=== PATIENT | female | born 1995 | race American Indian/Alaskan Native ===

== ENCOUNTER 2016-12-07 13:08 | Emergency (ER) | payer OTHER ==
[2016-12-07 14:10] LABS: Basophils % (Auto) 0.8 % (0.0-1.8); Eosinophils % (Auto) 0.6 % (0.0-4.3); Hematocrit 36.3 % (30.3-42.9); Hemoglobin 11.4 gm/dl (10.1-14.3); Mean Corpuscular HGB Conc 31 % (30-34); Platelet Count 217 K/mm3 (140-440); Red Cell Distribution Width 15.1 % (13.2-15.2); White Blood Count 4.7 K/mm3 (4.5-11.0)
[2016-12-07 14:11] LABS: Mean Corpuscular Hemoglobin 22 pg (28-32); Mean Corpuscular Volume 70 fl (79-97)
[2016-12-07 14:29] LABS: Anion Gap 21 mmol/L; Blood Urea Nitrogen 10 mg/dL (7-17); Calcium 9.5 mg/dL (8.4-10.2); Carbon Dioxide 23 mmol/L (22-30); Chloride 102.3 mmol/L (98-107); Glucose 75 mg/dL (65-100); Potassium 3.8 mmol/L (3.6-5.0); Sodium 142 mmol/L (137-145)
[2016-12-07] MEDS ORDERED: PROVENTIL IH ONE ×2 (16:15→20:42)
[2016-12-07] MEDS ORDERED: DELTASONE PO ONE (20:41)
--- NOTE | 2016-12-07 21:27 | Emergency Department Report ---
ED Asthma HPI - General Chief Complaint: Adult Asthma Stated Complaint: KATERINA Time Seen by Provider: 12/07/16 20:41 Source: patient Mode of arrival: Ambulatory Limitations: No Limitations - History of Present Illness Initial Comments: Patient is a 21-year-old female has a past medical history of asthma who presents with shortness of breath that has been going on earlier today. Patient states that her symptoms are worse with exertion and better at rest. She states that her symptoms are mild. 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 Patient states that her shortness of breath is better that she still needs an albuterol inhaler. Patient states that her triggers are weather change; her symptoms were sudden in onset - Related Data Previous Rx's Medication Instructions Recorded Last Taken Type ALBUTEROL Inhaler [ProAir HFA 2 puff IH QID PRN #1 inhalation 12/07/16 Unknown Rx Inhaler] predniSONE [Deltasone] 20 mg PO BID #10 tablet 12/07/16 Unknown Rx Allergies Allergy/AdvReac Type Severity Reaction Status Date / Time cinnamon Allergy Unknown Verified 12/07/16 13:39 ED Review of Systems ROS: Stated complaint: KATERINA Other details as noted in HPI Constitutional: denies: chills, fever Eyes: denies: eye pain, eye discharge, vision change ENT: denies: ear pain, throat pain Respiratory: shortness of breath, SOB with exertion. denies: cough, wheezing Cardiovascular: denies: chest pain, palpitations Endocrine: no symptoms reported Gastrointestinal: denies: abdominal pain, nausea, diarrhea Genitourinary: denies: urgency, dysuria, discharge Musculoskeletal: denies: back pain, joint swelling, arthralgia Skin: denies: rash, lesions Neurological: denies: headache, weakness, paresthesias Psychiatric: denies: anxiety, depression Hematological/Lymphatic: denies: easy bleeding, easy bruising ED Past Medical Hx - Past Medical History Previous Medical History?: Yes Hx Asthma: Yes - Surgical History Past Surgical History?: No - Social History Smoking Status: Never Smoker Substance Use Type: None - Medications Home Medications: Home Medications Medication Instructions Recorded Confirmed Last Taken Type ALBUTEROL Inhaler [ProAir HFA 2 puff IH QID PRN #1 inhalation 12/07/16 Unknown Rx Inhaler] predniSONE [Deltasone] 20 mg PO BID #10 tablet 12/07/16 Unknown Rx ED Physical Exam - General Limitations: No Limitations General appearance: alert, in no apparent distress - Head Head exam: Present: atraumatic, normocephalic - Eye Eye exam: Present: normal appearance - ENT ENT exam: Present: mucous membranes moist - Neck Neck exam: Present: normal inspection - Respiratory Respiratory exam: Present: normal lung sounds bilaterally. Absent: respiratory distress - Cardiovascular Cardiovascular Exam: Present: regular rate, normal rhythm. Absent: systolic murmur, diastolic murmur, rubs, gallop - GI/Abdominal GI/Abdominal exam: Present: soft, normal bowel sounds - Extremities Exam Extremities exam: Present: normal inspection - Back Exam Back exam: Present: normal inspection - Neurological Exam Neurological exam: Present: alert, oriented X3 - Psychiatric Psychiatric exam: Present: normal affect, normal mood - Skin Skin exam: Present: warm, dry, intact, normal color. Absent: rash ED Course Vital Signs 12/07/16 12/07/16 12/07/16 13:39 16:15 16:18 Temperature 98.4 F Pulse Rate 109 H 84 Pulse Rate [ 86 Bilateral] Respiratory 22 22 Rate Respiratory 16 Rate [Bilateral ] Blood Pressure 149/100 Blood Pressure 140/81 [Right] O2 Sat by Pulse 100 99 Oximetry 12/07/16 12/07/16 12/07/16 16:39 19:45 20:09 Temperature Pulse Rate Pulse Rate [ 88 Bilateral] Respiratory 16 Rate Respiratory 16 Rate [Bilateral ] Blood Pressure 122/71 Blood Pressure [Right] O2 Sat by Pulse 99 Oximetry 12/07/16 12/07/16 21:07 21:13 Temperature Pulse Rate Pulse Rate [ 92 H 95 H Bilateral] Respiratory Rate Respiratory 18 18 Rate [Bilateral ] Blood Pressure Blood Pressure [Right] O2 Sat by Pulse Oximetry - Reevaluation(s) Reevaluation #1: 12/07/16 21:27 Patient breathing treatment and she states she is feeling better I will send patient home with albuterol inhaler and steroid taper. ED Medical Decision Making - Lab Data Result diagrams: 12/07/16 13:47 12/07/16 13:47 Lab Results 12/07/16 12/07/16 12/07/16 Range/Units 13:47 13:47 13:47 WBC 4.7 (4.5-11.0) K/mm3 RBC 5.20 H (3.65-5.03) M/mm3 Hgb 11.4 (10.1-14.3) gm/dl Hct 36.3 (30.3-42.9) % MCV 70 L (79-97) fl MCH 22 L (28-32) pg MCHC 31 (30-34) % RDW 15.1 (13.2-15.2) % Plt Count 217 (140-440) K/mm3 Lymph % (Auto) 32.8 (13.4-35.0) % Kay % (Auto) 10.2 H (0.0-7.3) % Eos % (Auto) 0.6 (0.0-4.3) % Baso % (Auto) 0.8 (0.0-1.8) % Lymph # 1.6 (1.2-5.4) K/mm3 Kay # 0.5 (0.0-0.8) K/mm3 Eos # 0.0 (0.0-0.4) K/mm3 Baso # 0.0 (0.0-0.1) K/mm3 Seg Neutrophils % 55.6 (40.0-70.0) % Seg Neutrophils # 2.6 (1.8-7.7) K/mm3 Sodium 142 (137-145) mmol/L Potassium 3.8 (3.6-5.0) mmol/L Chloride 102.3 (98-107) mmol/L Carbon Dioxide 23 (22-30) mmol/L Anion Gap 21 mmol/L BUN 10 (7-17) mg/dL Creatinine 0.5 L (0.7-1.2) mg/dL Estimated GFR > 60 ml/min BUN/Creatinine Ratio 20.00 % Glucose 75 (65-100) mg/dL Calcium 9.5 (8.4-10.2) mg/dL Troponin T < 0.010 (0.00-0.029) ng/mL HCG, Qual Negative (Negative) - EKG Data -: EKG Interpreted by Ks - EKG Data 12/07/16 21:28 Patient's EKG shows normal sinus rhythm septal infarct age indeterminate no axis deviation no ST segment elevation or T-wave inversion. - Medical Decision Making Chief medical diagnosis: Asthma exacerbation Differential medical diagnosis: Hypokalemia, , hyponatremia I will give the patient a breathing treatment I will also order a CBC, CMP and urine Patient is able to ambulate without any shortness of breath she has no wheezing on exam and laboratory findings are unrevealing. I'll send the patient home and she'll verbal discharge instructions were given. Critical care attestation.: If time is entered above; I have spent that time in minutes in the direct care of this critically ill patient, excluding procedure time. ED Disposition Clinical Impression: Asthma exacerbation Disposition: DC-01 TO HOME OR SELFCARE Is pt being admited?: No Does the pt Need Aspirin: No Condition: Stable Instructions: Asthma (ED) Prescriptions: ALBUTEROL Inhaler [ProAir HFA Inhaler] 2 puff IH QID PRN #1 inhalation PRN Reason: Shortness Of Breath predniSONE [Deltasone] 20 mg PO BID #10 tablet Referrals: PRIMARY CARE, [Primary Care Provider] - 3-5 Days Forms: Work/School Release Form(ED) Time of Disposition: 21:32
[2016-12-07 22:04] VITALS: BP 133/90
== END 2016-12-07 22:03 | disposition home or self-care (01) ==
LOC: ED 13:08
DX: J45.901 Unspecified asthma with (acute) exacerbation (principal); Z91.018 Allergy to other foods
CPT/HCPCS: 36415; 80048; 84484; 84703; 85025; 93005; 93010; 94640; 99284; J7512

== ENCOUNTER 2021-11-09 12:38 | Outpatient (CLI) | payer MEDICAID ==
[2021-11-09 15:04] VITALS: BP 118/57
--- NOTE | 2021-11-10 06:30 | Ultrasound Report ---
US OB BPP wo non-stress, US OB limited INDICATION / CLINICAL INFORMATION: wellbeing COMPARISON: None available. TECHNIQUE: Using a transcutaneous probe, multiple grayscale, color Doppler, and spectral Doppler imag es of the uterus and fetus were captured and stored. Additional biophysical profile was performed. FINDINGS: Clinical estimated gestational age is 37 weeks 1 day. Single cephalic fetus is present heart rate 135 bpm. Amniotic fluid index is within normal limits measuring 14 cm. BREATHING MOVEMENT = 2 GROSS BODY MOVEMENT = 2 TONE = 2 QUALITATIVE AMNIOTIC FLUID VOLUME = 2 TOTAL BIOPHYSICAL SCORE = 8/8 IMPRESSION: 1. Normal biophysical profile score 8/8. 2. Single living fetus with normal CHRISTOPHER. Signer Name: Freddy Harp II, MD Signed: 11/10/2021 6:26 AM Workstation Name: [id number]
== END 2021-11-09 16:44 | disposition home or self-care (01) ==
LOC: TRG 12:38 → APU 12:40 → TRG 16:44
PROVIDERS: ATTEND Obstetrics & Gynecology
DX: Z34.93 Encounter for supervision of normal pregnancy, unspecified, third trimester (principal); Z3A.37 37 weeks gestation of pregnancy
CPT/HCPCS: 76815; 76819

== ENCOUNTER 2021-11-29 12:58 | Outpatient (CLI) | payer MEDICAID ==
--- NOTE | 2021-11-29 16:11 | Ultrasound Report ---
Biophysical profile Ultrasound HISTORY: well being. TECHNIQUE: Grayscale and color imaging performed. COMPARISON: None FINDINGS: Fetus received a score of 2 out of 2 for breathing, movement, posture/tone, and CHRISTPOHER. Total score was 8 out of 8. Heart rate was 131 bpm. IMPRESSION: Normal BPP Signer Name: Wolfgang Zapata MD Signed: 11/29/2021 4:06 PM Workstation Name: [id number]
[2021-11-29 16:35] VITALS: BP 107/75
--- NOTE | 2021-11-29 17:30 | Ultrasound Report ---
ULTRASOUND OBSTETRIC LIMITED INDICATION / CLINICAL INFORMATION: , evaluate amniotic fluid index. Clinical Gestational Age (GA) in weeks, days: 40, 1 TECHNIQUE: Transabdominal. COMPARISON: 11/09/2021 FINDINGS: HEART RATE (beats per minute): 145 AMNIOTIC FLUID INDEX (cm) = 12.3 (normal = 7-24 cm) PRESENTATION: Cephalic. ADDITIONAL FINDINGS: None. IMPRESSION: 1. Amniotic fluid index is within the normal range measuring 12.3 cm. Signer Name: Mika Carolina MD Signed: 11/29/2021 5:26 PM Workstation Name: [email or web address]
== END 2021-11-29 17:27 | disposition home or self-care (01) ==
LOC: TRG 12:58 → APU 12:59 → TRG 17:27
PROVIDERS: ATTEND Obstetrics & Gynecology
DX: Z34.93 Encounter for supervision of normal pregnancy, unspecified, third trimester (principal); Z3A.40 40 weeks gestation of pregnancy
CPT/HCPCS: 59025; 76815; 76819

== ENCOUNTER 2021-12-02 01:22 | Inpatient (IN) | payer MEDICAID ==
[2021-12-02] MEDS ORDERED: LACTATED RINGERS 1,000 ML ONE (01:59)
[2021-12-02] MEDS ORDERED: fentaNYL 100 MCG/2 ML INJ IV PRN (02:10)
[2021-12-02] MEDS ORDERED: ACETAMINOPHEN 325 MG TAB PO PRN (02:10)
[2021-12-02] MEDS ORDERED: NALOXONE 0.4 MG/1 ML INJ IV PRN (02:10)
[2021-12-02] MEDS ORDERED: ONDANSETRON 4 MG/2 ML INJ IV PRN (02:10)
[2021-12-02] MEDS ORDERED: OXYTOCIN 10 UNIT/1 ML INJ IM PRN (02:10)
[2021-12-02] MEDS ORDERED: BUTORPHANOL 2 MG/1 ML INJ IV PRN (02:10)
[2021-12-02] MEDS ORDERED: miSOPROStol 200 MCG TAB PR PRN (02:10)
[2021-12-02] MEDS ORDERED: AMPICILLIN/NS 2 GM/100 ML 2 GM/100 ML BAG IV ONE (02:10)
[2021-12-02] MEDS ORDERED: LIDOCAINE (2%) 20 MG/1 ML VIAL 20 ML MDV INFILTRATI ONE (02:10)
[2021-12-02] MEDS ORDERED: ePHEDrine SULFATE 50 MG/1 ML INJ IV PRN ×2 (02:10→14:00)
[2021-12-02] MEDS ORDERED: METHYLERGONOVINE MALEATE 0.2 MG/ML VIAL IM PRN (02:10)
[2021-12-02] MEDS ORDERED: CARBOPROST TROMETHAMINE 250 MCG/1 ML INJ IM PRN (02:10)
[2021-12-02] MEDS ORDERED: TERBUTALINE 1 MG/1 ML INJ SUB-Q PRN (02:10)
[2021-12-02] MEDS ORDERED: LOPERAMIDE 2 MG CAP PO PRN (02:10)
[2021-12-02] MEDS ORDERED: MINERAL OIL 30 ML ORAL LIQD PO PRN (02:10)
[2021-12-02 02:39] LABS: Hematocrit 39.2 % (30.3-42.9); Hemoglobin 12.2 gm/dl (10.1-14.3); Mean Corpuscular HGB Conc 31 % (30-34); Mean Corpuscular Volume 75 fl (79-97); Red Blood Count 5.24 M/mm3 (3.65-5.03); Red Cell Distribution Width 16.5 % (13.2-15.2)
[2021-12-02 02:44] LABS: Platelet Count 134 K/mm3 (140-440)
[2021-12-02] MEDS ORDERED: OXYTOCIN DRIP 30 UNITS/500 ML BAG IV SCH (03:00)
[2021-12-02] MEDS: LACTATED RINGERS 1,000 ML IV SCH ×2 (03:10→07:11)
[2021-12-02] MEDS: AMPICILLIN/NS 1 GM/50 ML 1 GM/50 ML BAG IV SCH ×4 (07:13→23:05)
[2021-12-02] MEDS: OXYTOCIN DRIP 30 UNITS/500 ML BAG IV SCH (08:52)
--- NOTE | 2021-12-02 08:55 | History and Physical Report ---
History of Present Illness Date of examination: 12/02/21 Date of admission: 12/02/21 02:10 Chief complaint: Leaking fluids History of present illness: 26yo, @ 40.4 wks, initiated care with [facility] teacher private at 10.4 wks gestation. 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 She presented to [facility] with reports of leaking fluids and was found to have positive SROM with meconium stained f luid. Reports + FM. Denies any VB. Labs: O+, antibody negative; rubella immune; VDRL negative; urine culture negative; HBsAg negative; HIV negative; Hep C negative; HSV2 negative; GC/Chlamydia/Trich omonas negative; MSAFP/Multiple markers low-risk; 1 hr gtt 186; 3 hr gtt WNL; GBS negative. Past History Past Medical History: asthma Past Surgical History: no surgical history Family/Genetic History: diabetes, hypertension Social history: single, full code. denies: smoking, alcohol abuse, prescription drug abuse, IV drug use - Obstetrical History Expected Date of Delivery: 11/28/21 Actual Gestation: 40 Week(s) 4 Day(s) : 2 Para: 0 Hx # Term Pregnancies: 0 Number of Pregnancies: 0 Spontaneous Abortions: 1 Induced : 0 Number of Living Children: 0 Medications and Allergies Allergies Allergy/AdvReac Type Severity Reaction Status Date / Time cinnamon Allergy Unknown Verified 12/02/21 02:04 Home Medications Medication Instructions Recorded Confirmed Last Taken Type Albuterol Mdi (or & Nicu Only) 2 puff IH QID PRN #1 inhalation 12/07/16 Unknown Rx [ProAir HFA Inhaler] predniSONE [Deltasone] 20 mg PO BID #10 tablet 12/07/16 Unknown Rx Active Meds: Active Medications Acetaminophen (Acetaminophen 325 Mg Tab) 650 mg PO Q4H PRN PRN Reason: Pain, Mild (1-3) Butorphanol Tartrate (Butorphanol 2 Mg/1 Ml Inj) 1 mg IV Q2H PRN PRN Reason: Pain, Moderate(4-6) LABOR PAIN Carboprost Tromethamine (Carboprost Tromethamine 250 Mcg/1 Ml Inj) 250 mcg IM ONCE PRN PRN Reason: Uterine Bleeding Ephedrine Sulfate (Ephedrine Sulfate 50 Mg/1 Ml Inj) 10 mg IV Q2M PRN PRN Reason: Hypotension Fentanyl (Fentanyl 100 Mcg/2 Ml Inj) 100 mcg IV Q2H PRN PRN Reason: Pain,Severe (7-10) LABOR PAIN Last Admin: 12/02/21 06:08 Dose: 100 mcg Oxytocin/Sodium Chloride (Pitocin/Ns 30 Unit/500ml) 30 units in 500 mls @ 2 mls/hr IV TITR GALILEO; Protocol Last Admin: 12/02/21 08:52 Dose: 2 mls/hr, 2 mls/hr Lactated Ringer's (Lactated Ringers) 1,000 mls @ 125 mls/hr IV DIRECT GALILEO Last Admin: 12/02/21 07:11 Dose: 125 mls/hr Oxytocin/Sodium Chloride (Pitocin/Ns 30 Unit/500ml) 30 units in 500 mls @ 40 mls/hr IV TITR GALILEO; Protocol Ampicillin Sodium (Ampicillin/Ns 1 Gm/50 Ml) 1 gm in 50 mls @ 100 mls/hr IV Q4H GALILEO; Protocol Last Admin: 12/02/21 07:13 Dose: 100 mls/hr Loperamide HCl (Loperamide 2 Mg Cap) 2 mg PO ONCE PRN PRN Reason: give with Hemabate Methylergonovine Maleate (Methylergonovine Maleate 0.2 Mg/Ml Vial) 0.2 mg IM ONCE PRN PRN Reason: Uterine Bleeding Mineral Oil (Mineral Oil 30 Ml Oral Liqd) 30 ml PO QHS PRN PRN Reason: Constipation Misoprostol (Misoprostol 200 Mcg Tab) 800 mcg NH ONCE PRN PRN Reason: Uterine Bleeding Naloxone HCl (Naloxone 0.4 Mg/1 Ml Inj) 0.1 mg IV Q2MIN PRN PRN Reason: Res Rate </= 8 or 02 SAT < 92% Ondansetron HCl (Ondansetron 4 Mg/2 Ml Inj) 4 mg IV Q8H PRN PRN Reason: Nausea And Vomiting Oxytocin (Oxytocin 10 Unit/1 Ml Inj) 10 unit IM ONCE PRN PRN Reason: Uterine Bleeding Terbutaline Sulfate (Terbutaline 1 Mg/1 Ml Inj) 0.25 mg SUB-Q ONCE PRN PRN Reason: Hyperstimulation/Hypertonicity Review of Systems Genitourinary: leakage of fluid - Vital Signs Vital signs: Vital Signs Pulse Pulse Ox 62 98 12/02/21 01:37 12/02/21 01:37 Temp Pulse Resp BP Pulse Ox 98.6 F 87 16 127/78 96 12/02/21 07:13 12/02/21 08:50 12/02/21 07:13 12/02/21 07:11 12/02/21 08:50 - Physical Exam Breasts: Positive: normal Cardiovascular: Regular rate Lungs: Positive: Normal air movement Abdomen: Positive: other (gravid) Uterus: Positive: enlarged (S=D) - Obstetrical FHR: category 1 Uterine Contraction Monitor Mode: External Cervical Dilatation: 3 (per RN) Cervical Effacement Percentage: 60 (Pitocin @ 4 mu/min) station: -2 Uterine Contraction Frequency (min): 2-4 Uterine Contraction Pattern: Irregular Uterine Tone Measurement Phase: Resting Uterine Contraction Intensity: Mild Results Result Diagrams: 12/02/21 02:00 Abnormal lab results 12/02/21 Range/Units 02:00 RBC 5.24 H (3.65-5.03) M/mm3 MCV 75 L (79-97) fl MCH 23 L (28-32) pg RDW 16.5 H (13.2-15.2) % Plt Count 134 L (140-440) K/mm3 All other labs normal. Assessment and Plan - Patient Problems (1) SROM (spontaneous rupture of membranes) Current Visit: Yes Status: Acute Plan to address problem: Meconium stained fluids NICU at bedside for delivery (2) Positive GBS test Current Visit: Yes Status: Acute Plan to address problem: GBS prophylaxis
--- NOTE | 2021-12-02 14:05 | Anesthesia Consultation ---
Anesthesia Consult and Med Hx - Airway Anesthetic Teeth Evaluation: Good ROM Head & Neck: Adequate Mental/Hyoid Distance: Adequate Mallampati Class: Class II Intubation Access Assessment: Probably Good - Pulmonary Exam CTA: Yes - Cardiac Exam Cardiac Exam: RRR - Pre-Operative Health Status ASA Pre-Surgery Classification: ASA2 Proposed Anesthetic Plan: Epidural - Pulmonary Hx Smoking: No Hx Asthma: Yes Hx Respiratory Symptoms: No SOB: No COPD: No Home Oxygen Therapy: No Hx Pneumonia: No Hx Sleep Apnea: No - Cardiovascular System Hx Hypertension: No Hx Coronary Artery Disease: No Hx Heart Attack/AMI: No Hx Angina: No Hx Percutaneous Transluminal Coronary Angioplasty (PTCA): No Hx Cardia Arrhythmia: No Hx Pacemaker: No Hx Internal Defibrillator: No Hx Valvular Heart Disease: No Hx Heart Murmur: No Hx Peripheral Vascular Disease: No - Central Nervous System Hx Neuromuscular Disorder: No Hx Seizures: No CVA: No Hx Back Pain: No Hx Psychiatric Problems: No - Gastrointestinal Hx Ulcer: No Hx Gastroesophageal Reflux Disease: No - Endocrine Hx Renal Disease: No Hx End Stage Renal Disease: No Hx Cirrhosis: No Hx Liver Disease: No Hx Insulin Dependent Diabetes: No Hx Non-Insulin Dependent Diabetes: No Hx Thyroid Disease: No Hx Hypothyroidism: No Hx Hyperthyroidism: No - Hematic Hx Anemia: Yes Hx Sickle Cell Disease: No - Other Systems Hx Alcohol Use: No Hx Substance Use: No Hx Cancer: No Hx Obesity: No
--- NOTE | 2021-12-02 14:42 | Progress Note ---
Labor Epidural - Labor Epidural Start Time: 14:14 Stop Time: 14:27 Performed by:: ERICA BUCHANAN Procedure: RAH at BS. Labs reviewed. Consent signed. TO performed. Pt sitting, film technician maintained. SCOTT at 8cm L3-4 after 3 attempts at different levels. Cath at 12 cm skin. Pt matty well. VSS
[2021-12-02] MEDS: fentaNYL-BUPIV 2 MCG/ML-0.125% 200 MCG/100 ML BAG EPIDURAL SCH ×2 (14:43→23:08)
--- NOTE | 2021-12-02 17:52 | Progress Note ---
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 She presented to [facility] with reports of leaking fluids and was found to have positive SROM with meconium stained fluid. Reports + FM. Denies any VB. Labs: O+, antibody negative; rubella immune; VDRL negative; urine culture negative; HBsAg negative; HIV negative; Hep C negative; HSV2 negative; GC/Chlamydia/Trichomonas negative; MSAFP/Multiple markers low-risk; 1 hr gtt 186; 3 hr gtt WNL; GBS negative. Patient reports: loss of fluid (meconium stained), vaginal bleeding (bloody show noted), movement normal, contractions, no new complaints Objective - Vital Signs Vital Signs: Vital Signs - 12hr 12/02/21 12/02/21 12/02/21 05:50 05:51 05:56 Temperature Pulse Rate 89 86 86 Respiratory Rate Blood Pressure O2 Sat by Pulse 94 100 98 Oximetry 12/02/21 12/02/21 12/02/21 06:01 06:06 06:11 Temperature Pulse Rate 86 90 89 Respiratory Rate Blood Pressure O2 Sat by Pulse 100 100 100 Oximetry 12/02/21 12/02/21 12/02/21 06:16 06:21 06:26 Temperature Pulse Rate 85 81 80 Respiratory Rate Blood Pressure O2 Sat by Pulse 100 100 100 Oximetry 12/02/21 12/02/21 12/02/21 06:31 06:36 06:41 Temperature Pulse Rate 82 79 78 Respiratory Rate Blood Pressure O2 Sat by Pulse 100 100 100 Oximetry 12/02/21 12/02/21 12/02/21 06:46 06:51 06:56 Temperature Pulse Rate 85 81 85 Respiratory Rate Blood Pressure O2 Sat by Pulse 100 100 100 Oximetry 12/02/21 12/02/21 12/02/21 07:01 07:06 07:11 Temperature Pulse Rate 77 86 96 H Respiratory Rate Blood Pressure 127/78 O2 Sat by Pulse 100 100 97 Oximetry 12/02/21 12/02/21 12/02/21 07:13 07:30 07:35 Temperature 98.6 F Pulse Rate 86 96 H 95 H Respiratory 16 Rate Blood Pressure O2 Sat by Pulse 100 97 97 Oximetry 12/02/21 12/02/21 12/02/21 07:40 07:45 07:50 Temperature Pulse Rate 90 87 98 H Respiratory Rate Blood Pressure O2 Sat by Pulse 97 95 98 Oximetry 12/02/21 12/02/21 12/02/21 07:55 08:00 08:05 Temperature Pulse Rate 94 H 103 H 107 H Respiratory Rate Blood Pressure O2 Sat by Pulse 97 97 96 Oximetry 12/02/21 12/02/21 12/02/21 08:10 08:15 08:20 Temperature Pulse Rate 97 H 114 H 97 H Respiratory Rate Blood Pressure O2 Sat by Pulse 97 96 96 Oximetry 12/02/21 12/02/21 12/02/21 08:25 08:30 08:31 Temperature Pulse Rate 100 H 87 88 Respiratory Rate Blood Pressure O2 Sat by Pulse 97 96 93 Oximetry 12/02/21 12/02/21 12/02/21 08:35 08:37 08:40 Temperature Pulse Rate 100 H 90 100 H Respiratory Rate Blood Pressure O2 Sat by Pulse 94 94 97 Oximetry 12/02/21 12/02/21 12/02/21 08:45 08:50 08:55 Temperature Pulse Rate 89 87 82 Respiratory Rate Blood Pressure O2 Sat by Pulse 98 96 98 Oximetry 12/02/21 12/02/21 12/02/21 08:58 08:59 09:00 Temperature 98.2 F Pulse Rate 86 93 H Respiratory Rate Blood Pressure 125/83 O2 Sat by Pulse 97 Oximetry 12/02/21 12/02/21 12/02/21 09:05 09:10 09:15 Temperature Pulse Rate 92 H 95 H 86 Respiratory Rate Blood Pressure O2 Sat by Pulse 98 95 97 Oximetry 12/02/21 12/02/21 12/02/21 09:20 09:23 09:25 Temperature Pulse Rate 79 80 76 Respiratory Rate Blood Pressure O2 Sat by Pulse 95 94 98 Oximetry 12/02/21 12/02/21 12/02/21 09:30 09:35 09:44 Temperature Pulse Rate 88 81 75 Respiratory Rate Blood Pressure O2 Sat by Pulse 97 99 94 Oximetry 12/02/21 12/02/21 12/02/21 09:45 09:50 09:55 Temperature Pulse Rate 81 83 77 Respiratory Rate Blood Pressure O2 Sat by Pulse 96 98 97 Oximetry 12/02/21 12/02/21 12/02/21 09:57 09:58 10:00 Temperature Pulse Rate 94 H 73 77 Respiratory Rate Blood Pressure 119/81 O2 Sat by Pulse 93 95 Oximetry 12/02/21 12/02/21 12/02/21 10:04 10:05 10:10 Temperature Pulse Rate 84 77 77 Respiratory Rate Blood Pressure O2 Sat by Pulse 94 95 97 Oximetry 12/02/21 12/02/21 12/02/21 10:11 10:15 10:17 Temperature Pulse Rate 89 84 77 Respiratory Rate Blood Pressure O2 Sat by Pulse 93 95 92 Oximetry 12/02/21 12/02/21 12/02/21 10:20 10:23 10:25 Temperature Pulse Rate 88 86 82 Respiratory Rate Blood Pressure O2 Sat by Pulse 95 92 97 Oximetry 12/02/21 12/02/21 12/02/21 10:49 10:54 10:59 Temperature 98.1 F Pulse Rate 94 H 92 H 89 Respiratory 18 Rate Blood Pressure 117/75 O2 Sat by Pulse 96 96 97 Oximetry 12/02/21 12/02/21 12/02/21 11:04 11:09 11:14 Temperature Pulse Rate 71 88 81 Respiratory Rate Blood Pressure O2 Sat by Pulse 97 98 99 Oximetry 12/02/21 12/02/21 12/02/21 11:19 11:24 11:29 Temperature Pulse Rate 95 H 94 H 86 Respiratory Rate Blood Pressure O2 Sat by Pulse 97 100 97 Oximetry 12/02/21 12/02/21 12/02/21 11:34 11:39 11:44 Temperature Pulse Rate 81 83 92 H Respiratory Rate Blood Pressure O2 Sat by Pulse 97 97 97 Oximetry 12/02/21 12/02/21 12/02/21 11:49 11:54 11:59 Temperature Pulse Rate 91 H 91 H 78 Respiratory Rate Blood Pressure O2 Sat by Pulse 100 97 98 Oximetry 12/02/21 12/02/21 12/02/21 12:00 12:04 12:09 Temperature Pulse Rate 83 89 89 Respiratory Rate Blood Pressure 136/88 O2 Sat by Pulse 100 100 Oximetry 12/02/21 12/02/21 12/02/21 12:14 12:19 12:24 Temperature Pulse Rate 76 86 78 Respiratory Rate Blood Pressure O2 Sat by Pulse 98 100 98 Oximetry 12/02/21 12/02/21 12/02/21 12:29 12:34 12:39 Temperature Pulse Rate 100 H 92 H 82 Respiratory Rate Blood Pressure O2 Sat by Pulse 98 98 98 Oximetry 12/02/21 12/02/21 12/02/21 12:44 12:49 12:54 Temperature Pulse Rate 74 97 H 91 H Respiratory Rate Blood Pressure O2 Sat by Pulse 99 97 97 Oximetry 12/02/21 12/02/21 12/02/21 12:58 12:59 13:26 Temperature Pulse Rate 76 83 88 Respiratory Rate Blood Pressure 127/81 O2 Sat by Pulse 97 100 Oximetry 12/02/21 12/02/21 12/02/21 13:31 13:34 13:36 Temperature Pulse Rate 89 89 77 Respiratory Rate Blood Pressure O2 Sat by Pulse 97 94 97 Oximetry 12/02/21 12/02/21 12/02/21 13:41 13:43 13:46 Temperature Pulse Rate 79 74 82 Respiratory Rate Blood Pressure O2 Sat by Pulse 100 86 97 Oximetry 12/02/21 12/02/21 12/02/21 13:51 13:54 13:56 Temperature Pulse Rate 96 H 83 79 Respiratory Rate Blood Pressure O2 Sat by Pulse 97 86 96 Oximetry 12/02/21 12/02/21 12/02/21 13:58 14:01 14:06 Temperature Pulse Rate 86 97 H 89 Respiratory Rate Blood Pressure 123/84 O2 Sat by Pulse 99 88 Oximetry 12/02/21 12/02/21 12/02/21 14:11 14:16 14:21 Temperature Pulse Rate 101 H 96 H 98 H Respiratory Rate Blood Pressure O2 Sat by Pulse 100 100 100 Oximetry 12/02/21 12/02/21 12/02/21 14:26 14:27 14:31 Temperature Pulse Rate 97 H 98 H 101 H Respiratory Rate Blood Pressure 132/71 O2 Sat by Pulse 100 100 Oximetry 12/02/21 12/02/21 12/02/21 14:36 14:41 14:42 Temperature Pulse Rate 97 H 88 102 H Respiratory Rate Blood Pressure 121/68 O2 Sat by Pulse 99 100 Oximetry 12/02/21 12/02/21 12/02/21 14:46 14:48 14:51 Temperature Pulse Rate 95 H 100 H 93 H Respiratory Rate Blood Pressure 117/87 O2 Sat by Pulse 100 100 Oximetry 12/02/21 12/02/21 12/02/21 14:57 15:02 15:06 Temperature Pulse Rate 95 H 72 84 Respiratory Rate Blood Pressure 120/72 111/64 115/68 O2 Sat by Pulse 99 99 Oximetry 12/02/21 12/02/21 12/02/21 15:07 15:11 15:12 Temperature Pulse Rate 93 H 96 H 76 Respiratory Rate Blood Pressure 108/64 O2 Sat by Pulse 99 97 Oximetry 12/02/21 12/02/21 12/02/21 15:17 15:18 15:21 Temperature Pulse Rate 76 92 H 75 Respiratory Rate Blood Pressure 115/66 117/69 O2 Sat by Pulse 98 Oximetry 12/02/21 12/02/21 12/02/21 15:23 15:26 15:28 Temperature Pulse Rate 92 H 92 H 77 Respiratory Rate Blood Pressure 107/68 O2 Sat by Pulse 96 96 Oximetry 12/02/21 12/02/21 12/02/21 15:31 15:32 15:33 Temperature Pulse Rate 72 93 H 80 Respiratory Rate Blood Pressure 119/81 O2 Sat by Pulse 94 97 Oximetry 12/02/21 12/02/21 12/02/21 15:38 15:43 15:44 Temperature Pulse Rate 83 75 80 Respiratory Rate Blood Pressure 112/68 110/64 O2 Sat by Pulse 97 98 Oximetry 12/02/21 12/02/21 12/02/21 15:47 15:48 15:53 Temperature Pulse Rate 85 122 H 92 H Respiratory Rate Blood Pressure 111/69 O2 Sat by Pulse 99 99 Oximetry 12/02/21 12/02/21 12/02/21 15:54 15:56 15:58 Temperature Pulse Rate 85 85 82 Respiratory Rate Blood Pressure 120/62 O2 Sat by Pulse 89 99 Oximetry 12/02/21 12/02/21 12/02/21 16:03 16:08 16:11 Temperature Pulse Rate 94 H 88 85 Respiratory Rate Blood Pressure 111/62 O2 Sat by Pulse 99 99 Oximetry 12/02/21 12/02/2122 16:13 16:18 16:23 Temperature Pulse Rate 94 H 85 77 Respiratory Rate Blood Pressure O2 Sat by Pulse 100 99 97 Oximetry 12/02/21 12/02/21 12/02/21 16:26 16:28 16:33 Temperature Pulse Rate 75 72 74 Respiratory Rate Blood Pressure 109/65 O2 Sat by Pulse 99 100 Oximetry 12/02/21 12/02/21 12/02/21 16:38 16:41 16:43 Temperature Pulse Rate 76 85 69 Respiratory Rate Blood Pressure 115/65 O2 Sat by Pulse 100 90 100 Oximetry 12/02/21 12/02/21 12/02/21 16:48 16:53 16:56 Temperature Pulse Rate 88 91 H 75 Respiratory Rate Blood Pressure 108/70 O2 Sat by Pulse 100 98 Oximetry 12/02/21 12/02/21 12/02/21 16:58 17:03 17:08 Temperature Pulse Rate 88 79 82 Respiratory Rate Blood Pressure O2 Sat by Pulse 100 100 100 Oximetry 12/02/21 12/02/21 12/02/21 17:10 17:13 17:17 Temperature Pulse Rate 90 87 132 H Respiratory Rate Blood Pressure 108/69 O2 Sat by Pulse 100 85 Oximetry 12/02/21 12/02/21 12/02/21 17:18 17:23 17:26 Temperature Pulse Rate 75 90 67 Respiratory Rate Blood Pressure O2 Sat by Pulse 100 100 92 Oximetry 12/02/21 12/02/21 12/02/21 17:28 17:33 17:38 Temperature Pulse Rate 104 H 76 93 H Respiratory Rate Blood Pressure O2 Sat by Pulse 75 L 100 100 Oximetry 12/02/21 12/02/21 17:40 17:43 Temperature Pulse Rate 69 89 Respiratory Rate Blood Pressure 119/71 O2 Sat by Pulse 99 Oximetry - Exam Breasts: deferred Cardiovascular: Regular rate Lungs: Normal air movement FHR: category 2 (minimal variability with repeated early decelations) Uterine Contraction Monitor Mode: External Cervical Dilatation: 4 (per RN) Uterine Contraction Frequency (min): 4 Uterine Contraction Pattern: Regular Uterine Tone Measurement Phase: Resting Uterine Contraction Intensity: Moderate - Labs Labs: Abnormal Labs 12/02/21 02:00 RBC 5.24 H MCV 75 L MCH 23 L RDW 16.5 H Plt Count 134 L Laboratory Results - last 24 hr 0812/02/21 12/02/21 02:00 02:00 02:00 WBC 4.8 RBC 5.24 H Hgb 12.2 Hct 39.2 MCV 75 L MCH 23 L MCHC 31 RDW 16.5 H Plt Count 134 L Syphilis IgG/IgM Ab Nonreactive Blood Type O POSITIVE Antibody Screen Negative
[2021-12-03] MEDS: OXYTOCIN DRIP 30 UNITS/500 ML BAG IV SCH (02:33)
[2021-12-03] MEDS: AMPICILLIN/NS 1 GM/50 ML 1 GM/50 ML BAG IV SCH (05:45)
[2021-12-03] MEDS ORDERED: diphenhydrAMINE 50 MG/ML VIAL IV ONE (05:49)
[2021-12-03] MEDS: fentaNYL-BUPIV 2 MCG/ML-0.125% 200 MCG/100 ML BAG EPIDURAL SCH (05:59)
[2021-12-03] MEDS ORDERED: FAMOTIDINE 20 MG/2 ML INJ IV NR (08:50)
[2021-12-03] MEDS ORDERED: ONDANSETRON 4 MG/2 ML INJ ONE (08:50)
[2021-12-03] MEDS ORDERED: LIDOCAINE 2%/EPINEPHRINE 1:200,000 VIAL (20 ML) INFILTRATI ONE (08:50)
[2021-12-03] MEDS ORDERED: BICITRA ORAL LIQD 30ML PO NR (09:00)
[2021-12-03] MEDS ORDERED: METOCLOPRAMIDE 10 MG/2 ML INJ IV NR (09:00)
[2021-12-03] MEDS ORDERED: LACTATED RINGERS 1,000 ML IV SCH (09:00)
[2021-12-03] MEDS ORDERED: OXYTOCIN DRIP 30 UNITS/500 ML BAG IV SCH ×2 (09:00→11:00)
[2021-12-03] MEDS ORDERED: ceFAZolin/Water 2 GM/20 ML 2 GM/20 ML SYRINGE IV ONE (09:01)
[2021-12-03] MEDS: LACTATED RINGERS 1,000 ML IV SCH (09:05)
[2021-12-03] MEDS ORDERED: KETOROLAC 30 MG/1 ML INJ ONE (09:57)
[2021-12-03] MEDS ORDERED: BUPIVACAINE/PF (0.25%) 2.5 MG/ML 30 ML VIAL INFILTRATI ONE (09:57)
[2021-12-03] MEDS ORDERED: PHENYLEPHRINE/NS 1,000 MCG/10 ML SYRINGE (OR USE) IV ONE (10:05)
--- NOTE | 2021-12-03 10:14 | Procedure Note ---
OB Delivery Note - Delivery Date of Delivery: 12/03/21 Surgeon: CHIKI VELEZ Estimated blood loss: other (qbl 1043ml) - Section Preop diagnosis: arrest of dilation, nonreassuring FHR tracing Postop diagnosis: same section procedure: section, primary low transverse Disposition: PACU Complications: none - A at 1 minute: 8 at 5 minutes: 9 Gender: Female (Weight 7 pounds 4 ounces)
[2021-12-03] MEDS ORDERED: SIMETHICONE 80 MG CHEW TAB PO PRN (10:16)
--- NOTE | 2021-12-03 10:16 | Operative Report ---
Operative Report Operative Report: Date of surgery: December 03, 2021 Preoperative diagnosis: at 40+ weeks; nonreassuring heart rate tracing; arrest of dilatation Postoperative diagnosis: Same as above Procedure: Primary low transverse delivery Surgeon: Marisela Perdomo M.D. Anesthesia: Regional Estimated blood loss:qbl 1043ml IV fluids: 1200 mL Urine output: 50 mL Findings: Liveborn female infant with Apgars of 8 and 9 weight 7 pounds 4 ounces Indications: 26-year-old -0-1-0 at 40+0 weeks who was admitted for induction of labor secondary to spontaneous rupture membranes. Her intrapartum course is complicated by nonreassuring heart rate tracing and arrest of dilatation at 6 cm. Procedure: The patient was taken to the operating room and given regional anesthesia without complication. She was prepped and draped in a normal sterile fashion. A Pfannenstiel skin incision was made down to layer the fascia which was nicked in the midline extended laterally with the Bovie cautery. The superior aspect of the rectus fascia was grasped with Karol clamps x2 and the rectus muscles off sharply. This was done in inferior fashion as well. The rectus muscle midline and peritoneum entered bluntly. An Nghia retractor was then inserted. A bladder blade was placed. The vesicouterine peritoneum was then entered sharply with Metzenbaum scissors. A bladder flap was created digitally. A low transverse uterine incision was then made and extended digitally. There was clear fluid upon entry into the uterine cavity. The head was delivered through the incision with fundal pressure. The cord was clamped and cut x2 and infant was passed off to pediatrics. The placenta was then manually extracted. The uterus was then exteriorized and cleared of clots and debris. The uterine incision was then closed in a running locked fashion with 0 Vicryl additional imbricating stitch was applied for 2 layer closure. The posterior cul-de-sac was then copiously irrigated. The uterus was replaced back into the abdomen and pelvis were the gutters were then irrigated. The Nghia retractor was then removed. The peritoneum was then reapproximated with 3-0 Vicryl incorporating the rectus muscle. The fascia was then closed with 0 Vicryl in a running fashion. The skin was then reapproximated with 3-0 Monocryl on a Tony needle subcuticular fashion. Steri-Strips to place across the incision and a Crede procedures performed at the end of the surgery. A pressure dressing was applied to the incision. The surgery productive of a liveborn female with Apgars of 8 and 9 weight 7 pounds 4 ounces. The patient was taken to the recovery room in stable condition. All sponge laps and needle counts correct x2.
[2021-12-03] MEDS ORDERED: NALOXONE 0.4 MG/1 ML INJ IV PRN ×2 (10:37→11:00)
[2021-12-03] MEDS ORDERED: PROMETHAZINE 25 MG TAB PO PRN (10:37)
[2021-12-03] MEDS ORDERED: HYDROmorphone 1 MG/1 ML INJ IV PRN (10:37)
[2021-12-03] MEDS ORDERED: PROMETHAZINE 25 MG RECT SUPP PR PRN (10:37)
[2021-12-03] MEDS ORDERED: ONDANSETRON 4 MG/2 ML INJ IV PRN (10:37)
--- NOTE | 2021-12-03 10:37 | Anesthesia Day of Surgery ---
Anesthesia Day of Surgery - Day of Surgery Patient Examined: Yes Patient H&P Reviewed: Yes Patient is NPO: Yes Beta Blockers: No
[2021-12-03] MEDS ORDERED: ACETAMINOPHEN 325 MG TAB PO PRN (11:00)
[2021-12-03] MEDS ORDERED: WITCH HAZEL/ GLYCERIN PAD TP PRN (11:00)
[2021-12-03] MEDS ORDERED: LANOLIN/ZINC/DIMETHICONE (LANSINOH) 7 GM TP PRN (11:00)
[2021-12-03] MEDS ORDERED: D5W/LACTATED RINGERS 1,000 ML IV SCH (11:00)
[2021-12-03] MEDS ORDERED: KETOROLAC 30 MG/1 ML INJ IV PRN (11:00)
[2021-12-03] MEDS ORDERED: MORPHINE 4 MG/1 ML INJ IV PRN (11:00)
[2021-12-03] MEDS: oxyCODONE /ACETAMINOPHEN 5-325MG TAB PO PRN ×2 (14:45→23:38)
[2021-12-03] MEDS: IBUPROFEN 600 MG TAB PO PRN (20:04)
[2021-12-04 02:53] LABS: Hemoglobin 9.7 gm/dl (10.1-14.3)
[2021-12-04] MEDS: IBUPROFEN 600 MG TAB PO PRN ×3 (05:47→23:24)
[2021-12-04] MEDS: oxyCODONE /ACETAMINOPHEN 5-325MG TAB PO PRN ×2 (08:26→16:05)
--- NOTE | 2021-12-04 12:13 | Progress Note ---
Assessment and Plan A: POD#1 s/p primary at term Obesity Edema P: IV Lasix ordered Begin bowel regimen Routine postop care Subjective - Subjective Date of service: 12/04/21 Principal diagnosis: POD#1 s/p primary at term Interval history: No overnight events. No flatus yet. Patient reports: appetite normal, voiding normally, pain well controlled, ambulating normally, no flatus, no bowel movement [place]: doing well Objective - Vital Signs Latest vital signs: Vital Signs Temp Pulse Resp BP BP Pulse Ox Pulse Ox 12/04/21 08:04 97.6 F 91 H 18 125/63 98 12/04/21 08:00 98 12/04/21 04:40 97.9 F 92 H 18 111/72 100 12/03/21 23:51 98.2 F 99 H 20 117/79 99 12/03/21 20:54 98.1 F 101 H 20 113/70 96 12/03/21 20:04 20 12/03/21 20:00 100 12/03/21 15:36 98.4 F 92 H 18 112/64 98 12/03/21 12:19 98.7 F 78 20 122/77 99 99 Intake and Output 12/03/21 12/04/21 12/04/21 22:59 06:59 14:59 Intake Total 760 600 Output Total 800 1950 900 Balance -40 -1350 -900 Intake: Oral 360 Intake, Free Water 400 600 Output: Urine 800 1950 900 Indwelling Catheter 800 900 Void 1050 900 Other: Total, Intake Amount 360 Total, Output Amount 800 700 900 - Exam Breasts: Present: deferred Abdomen: Present: soft (obese, ), distention (moderate ) Uterus: Present: fundal height at umbilicus Extremities: Present: edema (1+) Incision: Present: dressed - Labs Labs: Abnormal lab results 12/04/21 Range/Units 01:15 Hgb 9.7 L (10.1-14.3) gm/dl Hct 30.0 L D (30.3-42.9) %
[2021-12-04] MEDS: LACTULOSE 20 GM/30 ML ORAL LIQD PO SCH ×2 (12:34→23:36)
[2021-12-04] MEDS ORDERED: FUROSEMIDE 40 MG/4 ML INJ IV SCH (13:00)
[2021-12-04] MEDS: FUROSEMIDE 40 MG TAB PO SCH (16:05)
[2021-12-05] MEDS: oxyCODONE /ACETAMINOPHEN 5-325MG TAB PO PRN ×3 (03:54→18:06)
[2021-12-05] MEDS: LACTULOSE 20 GM/30 ML ORAL LIQD PO SCH ×2 (10:09→22:31)
[2021-12-05] MEDS: FUROSEMIDE 40 MG TAB PO SCH (10:09)
--- NOTE | 2021-12-05 10:50 | Progress Note ---
Assessment and Plan A: POD#2 s/p primary at term Obesity Edema P: Hold diet at clear liquids Closely monitor clinical status Subjective - Subjective Date of service: 12/05/21 Principal diagnosis: POD#2 s/p primary at term Interval history: + emesis this morning after eating Popeyes chicken, potato wedges, and and orange. + flatus. No Bowel movement. Patient reports: appetite normal, pain well controlled, flatus, ambulating normally, nauseated, no bowel movement : doing well Objective - Vital Signs Latest vital signs: Vital Signs Temp Pulse Resp BP Pulse Ox Pulse Ox 12/05/21 10:10 16 12/05/21 08:51 98.0 F 91 H 18 115/61 98 12/05/21 00:25 99.1 F 124 H 20 125/88 96 12/04/21 20:00 98 12/04/21 16:05 16 12/04/21 12:35 16 Intake and Output 12/04/21 12/05/21 12/05/21 22:59 06:59 14:59 Intake Total 360 Balance 360 Intake: Oral 360 Other: Total, Intake Amount 360 # Voids Void 2 - Exam Breasts: Present: deferred Abdomen: Present: soft (obese ) Uterus: Present: fundal height at umbilicus Extremities: Present: edema (1+)
[2021-12-05] MEDS: IBUPROFEN 600 MG TAB PO PRN (23:55)
--- NOTE | 2021-12-06 08:23 | Progress Note ---
Assessment and Plan - Patient Problems (1) delivery delivered Current Visit: Yes Status: Acute Plan to address problem: Patient doing well Discharge home Subjective - Subjective Date of service: 12/06/21 Principal diagnosis: POD#2 s/p primary at term Interval history: Patient is postop day #3 status post a primary delivery. She reports feeling better. She is tolerating her diet without complication Patient reports: appetite normal, voiding normally, pain well controlled [place]: doing well Objective - Vital Signs Latest vital signs: Vital Signs Temp Pulse Resp BP Pulse Ox Pulse Ox 12/06/21 00:02 98.2 F 100 H 20 113/80 98 12/05/21 20:00 100 12/05/21 18:11 97.9 F 98 H 18 116/76 100 12/05/21 10:10 16 12/05/21 08:54 100 12/05/21 08:51 98.0 F 91 H 18 115/61 98 Intake and Output 12/05/21 12/06/21 12/06/21 22:59 06:59 14:59 Intake Total 240 Balance 240 Intake: Oral 240 Other: Total, Intake Amount 240 # Voids Void 3 1 - Exam Abdomen: Present: normal appearance Incision: Present: normal
--- NOTE | 2021-12-06 08:24 | Discharge Summary ---
Providers - Providers Date of Admission: 12/02/21 02:10 Date of discharge: 12/06/21 Attending physician: LULA GHOTRA Primary care physician: LULA GHOTRA Hospitalization Reason for admission: rupture of membranes Delivery: Procedure: section, primary low transverse Discharge diagnosis: IUP at term delivered Hospital course: The patient was admitted after complaint of spontaneous rupture membranes. Her intrapartum course was complicated by arrest of dilatation and nonreassuring heart rate tracing. The patient is taken for primary delivery. Her postoperative course was uneventful. Condition at discharge: Good Disposition: 01 HOME / SELF CARE / HOMELESS - Discharge Diagnoses (1) delivery delivered Status: Acute Plan - Discharge Medications Prescriptions: RX: Ferrous Sulfate [Feosol 325 MG tab] 325 mg PO BID #60 tablet Ibuprofen [Motrin] 800 mg PO Q8HR PRN #30 tablet PRN Reason: Pain, Moderate (4-6) oxyCODONE /ACETAMINOPHEN [Percocet 5/325] 1 tab PO Q6HR PRN #30 tablet PRN Reason: Pain - Provider Discharge Summary Activity: no sex for 6 weeks, no heavy lifting 4 weeks, no strenuous exercise Diet: routine Instructions: routine Additional instructions: [] Smoking cessation referral if applicable(refer to patient education folder for contact #) [] Refer to [facility] Booklet Call your doctor immediately for: * Fever > 100.5 * Heavy vaginal bleeding ( >1 pad per hour) * Severe persistent headache * Shortness of breath * Reddened, hot, painful area to leg or breast * Drainage or odor from incision. * Keep incision clean and dry at all times and follow doctor's instructions regarding bathing/showering Schedule incision check in 2 weeks - Follow up plan Forms: [facility] Discharge Summary
[2021-12-06] MEDS: FUROSEMIDE 40 MG TAB PO SCH (09:37)
[2021-12-06] MEDS: oxyCODONE /ACETAMINOPHEN 5-325MG TAB PO PRN (09:37)
[2021-12-06] MEDS: LACTULOSE 20 GM/30 ML ORAL LIQD PO SCH (09:37)
[2021-12-06 09:53] VITALS: BP 106/70
== END 2021-12-06 14:40 | disposition home or self-care (01) | DRG 766 ==
LOC: TRG 01:22 → APU 01:23 → TRG 02:10 → LD 02:10 → APU 12-03 09:13 → OB 12-03 11:43
PROVIDERS: ADMIT Obstetrics & Gynecology; ATTEND Obstetrics & Gynecology
PROC: 10D00Z1 Extraction of Products of Conception, Low, Open Approach (ICD-10-PCS; principal; 2021-12-03)
DX: O76 Abnormality in fetal heart rate and rhythm complicating labor and delivery (principal); O99.824 Streptococcus B carrier state complicating childbirth; Z20.822 Contact with and (suspected) exposure to COVID-19; O48.1 Prolonged pregnancy; O77.0 Labor and delivery complicated by meconium in amniotic fluid; O99.214 Obesity complicating childbirth; Z37.0 Single live birth; Z83.3 Family history of diabetes mellitus; Z82.49 Family history of ischemic heart disease and other diseases of the circulatory system; Z3A.40 40 weeks gestation of pregnancy
CPT/HCPCS: 36415; 59025; 76815; 76819; 85014; 85018; 85027; 86592; 86850; 86900; 86901; G0378; J3490; J7060; J0290; J1200; J1885; J1940; J2370; J2405; J2590; J2765; J3010; J7120; J7121; U0003